=== PATIENT | male | born 1995 | race African-American/Black ===

== ENCOUNTER 2023-06-14 22:27 | Emergency (ER) | payer SELFPAY ==
[~2023-06-14] VITALS: Ht 177.8 cm; Wt 79.0 kg
[2023-06-14 22:52] VITALS: BP 137/83; O2SAT 99
[2023-06-15] MEDS ORDERED: CLOT15CR27 TP (01:06)
[2023-06-15] MEDS ORDERED: CETI10TA6 PO (01:06)
[2023-06-15] MEDS ORDERED: DOXY100T28 PO (01:06)
[2023-06-15 01:09] LABS: CLARITY URINE CLEAR (CLEAR); COLOR URINE YELLOW (YELLOW); GLUCOSE URINE NEGATIVE (NEGATIVE); KETONES URINE NEGATIVE (NEGATIVE); LEUKOCYTE ESTERASE URINE NEGATIVE (NEGATIVE); NITRITE URINE NEGATIVE (NEGATIVE); OCCULT BLOOD URINE NEGATIVE (NEGATIVE); PROTEIN URINE NEGATIVE (NEGATIVE); SPECIFIC GRAVITY URINE 1.025 (1.005-1.030); UROBILINOGEN URINE 1 E.U./dL (0.2-1.0)
[2023-06-15 02:16] VITALS: PULSE 75; RESP 16; TEMP 98.1
== END 2023-06-15 02:18 | disposition home or self-care (01) ==
LOC: ER 22:27
DX: N48.1 Balanitis (principal); L73.9 Follicular disorder, unspecified; Z88.0 Allergy status to penicillin
CPT/HCPCS: 81003; 99283